=== PATIENT | female | born 1985 | race Caucasian/White ===

== ENCOUNTER 2017-03-12 17:39 | Emergency (ER) | payer SELFPAY ==
[~2017-03-12] VITALS: Ht 170.2 cm; Wt 78.0 kg
[2017-03-12 17:41] VITALS: BP 142/74; PULSE 78; RESP 16; TEMP 99.4; O2SAT 95
--- NOTE | 2017-03-12 18:37 | PD ---
HPI Chief Complaint: Complaint Time Seen by Provider: 18:11 Travel History International Travel<30 days: No Contact w/Intl Traveler<30days: No Traveled to known affect area: No History of Present Illness HPI 31-year-old female presents to the emergency department for evaluation of urinary symptoms; ongoing for approximately 1.5 weeks. She states that she has lower abdominal pain, urinary urgency, urinary frequency, dysuria. She states this is typical of her when she has a UTI. She denies any fevers or chills. No chest pain shortness breath. No nausea, vomiting, diarrhea, constipation. Patient denies any abnormal vaginal discharge or risk of STDs. Patient was no chronic medical problems and takes no prescribed medications. Patient denies . PFSH Past Medical History Medical History: Denies Significant Hx Tetanus Vaccination: < 5 Years ?: Not LMP: 02/23/17 : 1 Para: 1 Past Surgical History Surgical History: No Previous Surgery Social History Alcohol Use: No Tobacco Use: No Substance Use: No Allergies-Medications (Allergen,Severity, Reaction): Coded Allergies: buprenorphine (Verified Allergy, Severe, vomiting, 03/12/17) naloxone (Verified Allergy, Severe, vomiting, 03/12/17) Review of Systems Except as stated in HPI: all other systems reviewed are Neg Physical Exam Narrative GENERAL: Well-nourished, well-developed female patient, afebrile. SKIN: Focused skin assessment warm/dry. HEAD: Normocephalic. Atraumatic. EYES: No scleral icterus. No injection or drainage. NECK: Supple, trachea midline. No JVD or lymphadenopathy. CARDIOVASCULAR: Regular rate and rhythm without murmurs, gallops, or rubs. RESPIRATORY: Breath sounds equal bilaterally. No accessory muscle use. Lungs sounds are clear to auscultation. GASTROINTESTINAL: Abdomen soft, non-tender, nondistended. MUSCULOSKELETAL: No cyanosis, or edema. BACK: Nontender without obvious deformity. No CVA tenderness. Data Data Last Documented VS Vital Signs Date Time Temp Pulse Resp B/P (MAP) Pulse Ox O2 Delivery O2 Flow Rate FiO2 03/12/17 17:41 99.4 78 16 142/74 (96) 95 Room Air Orders Orders Ed Urine Pregnancytest Poc (03/12/17 18:14) Urinalysis - C+S If Indicated (03/12/17 18:14) Urine Culture (03/12/17 18:00) Sulfamet-Trimeth Ds 800-160 Mg (Bactrim (03/12/17 19:15) Labs Laboratory Tests Test 03/12/17 18:00 Urine Color DARK-BROWN Urine Turbidity CLEAR Urine pH 5.5 Urine Specific M[place]arley 1.022 Urine Protein NEG mg/dL Urine Glucose (UA) NEG mg/dL Urine Ketones NEG mg/dL Urine Occult Blood NEG Urine Nitrite POS Urine Bilirubin NEG Urine Urobilinogen 4.0 MG/DL Urine Leukocyte Esterase NEG Urine RBC 1 /hpf Urine WBC 1 /hpf Urine Squamous Epithelial Cells 1 /hpf Urine Mucus FEW /lpf Microscopic Urinalysis Comment CULTURE INDICATED MDM Medical Decision Making Medical Screen Exam Complete: Yes Emergency Medical Condition: Yes Medical Record Reviewed: Yes Differential Diagnosis UTI versus pyelonephritis versus dysuria Narrative Course 31-year-old male presents to the emergency department for evaluation of urinary symptoms for 1.5 weeks. Patient appears well on exam. UA and urine test are ordered and pending. UPT is negative. UA shows positive nitrate. Patient will be started on Bactrim for UTI. She is given her first dose in the emergency department. The patient was discharged in stable condition with instructions, including return instructions and follow up instructions. Diagnosis Primary Impression: UTI (urinary tract infection) Qualified Codes: N30.00 - Acute cystitis without hematuria Referrals: Primary Care Physician call for appointment Patient Instructions: General Instructions, Urinary Tract Infection in Women ( ED) Additional Instructions: Take antibiotic as directed until gone. This is free at [facility]. Follow-up with your primary care physician. Return to the emergency department for any acute worsening of symptoms. Med/Other Pt SpecificInfo: Prescription(s) given Scripts Sulfamethoxazole-Trimethoprim (Bactrim DS) 800-160 Mg Tab 1 TAB PO BID for Infection, #14 TAB 0 Refills Prov: Vaishali Pfeiffer 03/12/17 Disposition: 01 DISCHARGE HOME Condition: Stable Vaishali Pfeiffer Mar 12, 2017 18:37
[2017-03-12 18:46] LABS: BLOOD, URINE NEG (NEG); COMMENT (UR) CULTURE INDICATED; CULTURE IF INDICATED CULTURE INDICATED; GLUCOSE,URINE NEG (NEG); KETONE, URINE NEG (NEG); MUCUS URINE FEW /lpf (OCC); NITRITE,URINE POS (NEG); PH, URINE 5.5 (5.0-8.5); SQUAMOUS EPITHELIAL CELL URINE 1 /hpf (0-5); URINE COLOR DARK-BROWN (YELLW/STRAW)
[2017-03-12] MEDS ORDERED: BACT800T5 PO (19:03)
[2017-03-12] MEDS ORDERED: SULFAMETHOXAZOLE-TRIMETHOPRIM DS 800-160 MG TAB PO ONE (19:15)
== END 2017-03-12 19:26 | disposition home or self-care (01) ==
LOC: NEPD 17:39
DX: N30.00 Acute cystitis without hematuria (principal)
CPT/HCPCS: 81001; 84703; 87086; 99283